=== PATIENT | male | born 1960 | race Hispanic/Latino ===

== ENCOUNTER 2017-01-30 21:04 | Emergency (ER) | payer OTHER ==
[2017-01-30 21:41] VITALS: BP 150/83; PULSE 83; RESP 16; TEMP 98.4; O2SAT 98
== END 2017-01-30 21:36 | disposition left against medical advice (07) ==
LOC: C.ER 21:04
DX: F10.10 Alcohol abuse, uncomplicated (principal); F11.10 Opioid abuse, uncomplicated; Z02.9 Encounter for administrative examinations, unspecified